=== PATIENT | male | born 1995 | race Caucasian/White ===

== ENCOUNTER 2020-06-09 12:18 | Emergency (ER) | payer MEDICAID ==
--- NOTE | 2020-06-09 12:36 | EDM.PDOC ---
ED HPI GENERAL MEDICAL PROBLEM - General Chief Complaint: General Stated Complaint: TOOTH PAIN Time Seen by Provider: 06/09/20 12:30 Source of Information: Reports: Patient History Limitations: Reports: No Limitations - History of Present Illness INITIAL COMMENTS - FREE TEXT/NARRATIVE: 25-year-old male who presents to the emergency department via friend via POV complaining of left upper jaw and dental pain. She reports this began yesterday and has progressively worsened. It is a throbbing pain that he reports is a 10/10. It is very sensitive to touch and to hot and cold exposure. There is some redness around the area. It is in a tooth that is behind an area where a tooth has been lost. He has had no fevers or chills. There has been no nausea or vomiting. He has taken Tylenol 500 mg without relief of his pain. There has been no trouble swallowing area and there has been no trouble breathing. There are no other associated signs or symptoms. There are no other modifying factors. Onset: Other (History today.) Duration: Constant Location: Reports: Other (Left upper dental pain) Quality: Reports: Ache, Throbbing Severity: Severe Improves with: Reports: None Worsens with: Reports: Eating, Other (Patient. 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: Reports: Other (see below) (Nothing.) - Related Data Allergies Allergy/AdvReac Type Severity Reaction Status Date / Time No Known Allergies Allergy Verified 06/09/20 12:19 Home Meds: Home Meds Amoxicillin/Clavulanate K [Augmentin 875-125 MG] 1 tab PO BID 9 Days #18 tablet 06/09/20 [Rx] Past Medical History - Past Health History Medical/Surgical History: Denies Medical/Surgical History Social & Family History - Tobacco Use Tobacco Use Status *Q: Current Every Day Tobacco User Years of Tobacco use: 14 Packs/Tins Daily: 1 - Alcohol Use Alcohol Use History: No - Recreational Drug Use Recreational Drug Use: Yes Drug Use in Last 12 Months: No Recreational Drug Type: Reports: Cocaine, Other (see below) Other Recreational Drug Type: 7 yrs since last use - Living Situation & Occupation Occupation: Unemployed ED ROS GENERAL - Review of Systems Review Of Systems: See Below Constitutional: Reports: No Symptoms HEENT: Reports: Dental Pain Respiratory: Reports: No Symptoms Cardiovascular: Reports: No Symptoms Endocrine: Reports: No Symptoms GI/Abdominal: Reports: No Symptoms : Reports: No Symptoms Musculoskeletal: Reports: No Symptoms Skin: Reports: No Symptoms Neurological: Reports: No Symptoms Psychiatric: Reports: No Symptoms Hematologic/Lymphatic: Reports: No Symptoms Immunologic: Reports: No Symptoms ED EXAM, GENERAL - Physical Exam Exam: See Below Exam Limited By: No Limitations General Appearance: Alert, WD/WN, Mild Distress (In some pain.), Other (Appears nontoxic.) Eye Exam: Bilateral Eye: EOMI, Normal Inspection Ears: Normal External Exam, Hearing Grossly Normal Ear Exam: Bilateral Ear: Auricle Normal Nose: Normal Inspection, Normal Mucosa, No Blood Throat/Mouth: Normal Voice, No Airway Compromise, Other (Erythema around left upper premolar. No pointing abscess.) Head: Atraumatic, Facial Tenderness (Left upper maxillary area.) Neck: Normal Inspection, Supple, Non-Tender, Full Range of Motion Respiratory/Chest: No Respiratory Distress, Lungs Clear, Normal Breath Sounds, No Accessory Muscle Use, Chest Non-Tender Cardiovascular: Normal Peripheral Pulses, No Murmur, Tachycardia (Mildly tachycardic.) Peripheral Pulses: 2+: Radial (L), Radial (R) GI/Abdominal: Normal Bowel Sounds, Soft, Non-Tender, No Mass Back Exam: Normal Inspection Extremities: Normal Inspection, Normal Range of Motion, Non-Tender, No Pedal Edema, Normal Capillary Refill Neurological: Alert, Oriented, CN II-XII Intact, Normal Cognition, No Motor/Sensory Deficits Psychiatric: Normal Affect Skin Exam: Warm, Dry, Intact, Normal Color, No Rash Course - Vital Signs Last Recorded V/S: Last Vital Signs Temp 35.8 C L 06/09/20 12:20 Pulse 111 H 06/09/20 12:20 Resp 22 H 06/09/20 12:20 BP 112/73 06/09/20 12:20 Pulse Ox 100 06/09/20 12:20 - Orders/Labs/Meds Meds: Medications Discontinued Medications Generic Name Dose Route Start Last Admin Trade Name Freq PRN Reason Stop Dose Admin Amoxicillin/Clavulanate Potassium 2 tab 06/09/20 12:43 06/09/20 12:45 Amoxicillin/Clavulanate K 875-125 Mg Tab PO 06/09/20 12:44 2 tab ONETIME ONE Administration Ketorolac Tromethamine 60 mg 06/09/20 12:42 06/09/20 12:47 Ketorolac 60 Mg/2 Ml Sdv IM 06/09/20 12:43 60 mg ONETIME ONE Administration - Re-Assessments/Exams Free Text/Narrative Re-Assessment/Exam: 06/09/20 12:40: Adult male with dental infection. He is nontoxic. I have given him Toradol [address] him on Augmentin 875 by mouth twice a day for 10 days. He is to keep his appointment with the dentist that he made for this coming week. He is to take Tylenol and I'm Profen as needed for pain. Departure - Departure Time of Disposition: 12:47 Disposition: Home, Self-Care 01 Condition: Good (Stable.) Clinical Impression: Dental abscess, Pain, dental - Discharge Information Prescriptions: Amoxicillin/Clavulanate K [Augmentin 875-125 MG] 1 tab PO BID 9 Days #18 tablet Referrals: PCP,None [Primary Care Provider] - Forms: ED Department Discharge Additional Instructions: You have a dental abscess. I have placed you on antibodies to treat this infection (Augmentin 875 mg). I sent the remainder of your prescription to [facility] pharmacy. You need to pick it up tomorrow and take the antibiotics as directed until completed. You should keep your appointment with the dentist that you have arranged. You can take Tylenol 1000 mg by mouth every 6 hours as needed for pain. You can also take ibuprofen 600 mg by mouth every 6 hours as needed for pain. Back to the emergency department for difficulty breathing, trouble swallowing, unrelenting vomiting or any other conc erning signs or symptoms. Sepsis Event Note (ED) - Evaluation Sepsis Screening Result: No Definite Risk - Focused Exam Vital Signs: Vital Signs Temp Pulse Resp BP Pulse Ox 06/09/20 12:20 35.8 C L 111 H 22 H 112/73 100
[2020-06-09] MEDS: Amoxicillin/Clavulanate K 875-125 MG Tab PO ONE (12:45)
[2020-06-09] MEDS: Ketorolac 60 MG/2 ML SDV IM ONE (12:47)
== END 2020-06-09 13:05 | disposition home or self-care (01) ==
LOC: FB.ED 12:18
DX: K04.7 Periapical abscess without sinus (principal); Z72.0 Tobacco use
CPT/HCPCS: 96372; 99282; A9270; J1885

== ENCOUNTER 2020-12-26 23:19 | Emergency (ER) | payer MEDICAID ==
[2020-12-26] MEDS ORDERED: Diphtheria/Tetanus Toxoids,Adult (Td) 0.5 ML SDV IM ONE (23:45)
[2020-12-26] MEDS ORDERED: cefTRIAXone 1 GM Vial IM ONE (23:45)
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
[2020-12-27 00:19] VITALS: BP 131/73; PULSE 104
== END 2020-12-27 00:30 | disposition home or self-care (01) ==
LOC: FB.ED 23:19
DX: S51.811A Laceration without foreign body of right forearm, initial encounter (principal); Z23 Encounter for immunization; Y04.0XXA Assault by unarmed brawl or fight, initial encounter
CPT/HCPCS: 90471; 90714; 96372; 99284; J0696